=== PATIENT | male | born 1995 | race Caucasian/White ===

== ENCOUNTER 2017-07-21 01:10 | Emergency (ER) | payer SELFPAY ==
[2017-07-21 01:11] VITALS: BP 159/90; PULSE 100; RESP 14; TEMP 37.4; O2SAT 96; BMI 31.5
--- NOTE | 2017-07-21 01:28 | ED.DCSUM_ITS ---
- ER Visit Summary Date of Service: 07/21/17 Chief Complaint: Cough and congestion History of Present Illness: The patient is a 21 M he has had cold symptoms for the past 4 days. He states he is starting to feel better but left work early on July 19 and needs a work note for that day. He denies fever. He has productive cough with white sputum. Does have a history of asthma but is not felt as if he has been wheezing. Physical Examination: Vital signs are significant for blood pressure 159/90, otherwise normal. Head neck examination is unremarkable. Heart is regular rate and rhythm. Lung sounds are clear bilaterally. Abdomen soft nontender. Neuro exam is unremarkable. Test Results: [] Emergency Department Course and Treatment: Patient is given a work note. He may take [id number] medication and return to work. Treatment Plan: [] Disposition: Discharge Impression: Viral URI This note was generated with Narrative dictation software. It may contain incorrect words, spelling, and punctuation that were not noted in review of the chart prior to signing ED Disposition - Plan for ED Patient: Disposition: Home or Assisted Living Chief Complaint: Cold Sx Instructions: ED URI Viral
== END 2017-07-21 01:34 | disposition home or self-care (01) ==
PROVIDERS: Emergency Provider Emergency Medicine
DX: J06.9 Acute upper respiratory infection, unspecified (principal); J45.909 Unspecified asthma, uncomplicated; Z72.0 Tobacco use
CPT/HCPCS: 99282

== ENCOUNTER → 2020-03-17 10:18 | Outpatient (CLI) | payer BC, SELFPAY ==
--- NOTE | 2020-03-17 10:24 | RAD_ITS ---
STUDY: X-RAY - LUMBAR SPINE REASON FOR EXAM: Male, 24 years old. 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 COMPARISON: 2016 FINDINGS: There is straightening of the normal lumbar lordosis. There is no substantial scoliosis. There is a normal alignment of the vertebrae. Normal vertebral bodies and endplates. Normal disc space heights. The soft tissue structures are unremarkable. RAD/Lumbar Spine 2 or 3 Views IMPRESSION: Stable straightening of the lumbar lordotic curvature. No demonstrated fracture or suspicious osseous lesion Electronically Signed: Abdullahi Jara MD at 17:40 EDT , Service support ,
== END ==
PROVIDERS: Referring Provider Anesthesiology Pain Medicine; Visit Provider Anesthesiology Pain Medicine
DX: M54.9 Dorsalgia, unspecified (principal)
CPT/HCPCS: 72100

== ENCOUNTER 2020-03-26 06:55 | Outpatient (RCR) | payer BC, SELFPAY ==
--- NOTE | 2020-03-26 15:49 | HP.PTEVAL_ITS ---
Patient's Visit Information RACHAEL SCHROEDER is a 24 year old M referred to Physical Therapy by Dr. Mauricio Jennings MD with a diagnosis of Back pain. Date of Evaluation: 03/26/20 Physical Therapist: Remy Silva DPT - Visit Plan Frequency: 2x /Week Duration: 4 Weeks Plan: Start with lumbar extension progression, progressing to neutral spine core stability exercises. - Subjective Pt. is here today for his initial evaluation with diagnosis of back pain. Pt. is reports having pain for years. No mech of injury, but does report lifting alot in his youth with reported bad mechanics. 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 After standing for longer periods of time he is hunched over. He is having pain in her L posterior leg today. Pt. did report ~ 1 year ago when he was lifting alot and felt really weak in his legs. Pt. is hopeful to reduce his symptoms and allow to walk. He did have injections last week which have been helpful. - Pain lumbar spine Pain Intensity (Out of 10): 0 Pain Intensity Range: 0, 6 thoracic spine Pain Intensity (Out of 10): 0 Pain Intensity Range: 0, 6 - Objective POSTURE: Pt. has slight flexed posture. Pt. has slight FH posture. Pt. is able to correct with VCing. PALPATION: Pt. has minimal tenderness throughout lumbar, throacic and cervical spine. PT. has slight FH posture. NEURO: Pt. has normal sensation to light and sharp touch and normal DTR of B UE/LEs. ROM: LUMBAR SPINE: flexion- min loss increase NW, extension min/nil loss increase NW, SB nil loss NE, rotatin nil loss NE. CERVICAL SPINE: full ROM without increase ins symptoms. Stiffness noted in T-spine throughout. MMT: 5/5 strength throughout BUE and BLEs. Core strength- fair. GAIT: Pt. has normal gait pattern, slight increase in trunk rotation with gait, but no lateral hip translation. STAIRS: normal throughout. - Special Tests L/S Slump test left side: Positive L/S Slump test right side: Negative Lumbar Standing: Flexion - Mechanical Response: No effect Lumbar Standing: Flexion - Symptoms During Testing: Increases Lumbar Standing: Flexion - Symptoms After Testing: Worse Lumbar Standing: Extension - Mechanical Response: No effect Lumbar Standing: Extension - Symptoms During Testing: Decreases Lumbar Standing: Extension - Symptoms After Testing: No better Lumbar Standing: Right Side [place] - Symptoms During Testing: No effect Lumbar Standing: Right Side [place] - Symptoms After Testing: No effect Lumbar Standing: Left Side [place] - Mechanical Response: No effect Lumbar Standing: Left Side [place] - Symptoms During Testing: No effect Lumbar Standing: Left Side [place] - Symptoms After Testing: No effect Lumbar Lying: Flexion - Mechanical Response: No effect Lumbar Lying: Flexion - Symptoms During Testing: No effect Lumbar Lying: Flexion - Symptoms After Testing: No effect Lumbar Lying: Extension - Mechanical Response: No effect Lumbar Lying: Extension - Symptoms During Testing: Decreases Lumbar Lying: Extension - Symptoms After Testing: No better - Goals Goal 1:: LTG: Pt. to be I with HEP. Goal Time Frame: 4-6 Weeks Goal 2:: STG: pt. to be able to drive 2-3 hours without increase in symptoms. Goal Time Frame: 2-4 Weeks Goal 3:: LTG: Pt. to complete all work related activities without increase in symptoms. Goal Time Frame: 4-6 Weeks Goal 4:: STG: Pt. to have full lumbar ROM without increase in symptoms. Goal Time Frame: 2-4 Weeks Goal 5:: LTG: Pt. to have increased core strength by 1/2 grade without increase in symptoms. Goal Time Frame: 4-6 Weeks - Rehabilitation Potential Physical Therapy Diagnosis: Pt. has signs and symptoms consistent with low back pain with occassional radicular symptoms. He has a job here his sits for hours then is asked to lift heavier wts. Pt. would benefit from extension progressing and core stability exercises. Rehabilitation Potential: Excellent - Anticipated Interventions Patient/Client Instruction: Educate patient on: Condition, Plan of Care, Risk Factors, Benefits of Fitness Program For the Purpose of:: To improve self management, To prevent re-injury, To improve ability to perform tasks related to life management, To improve tolerance to ADL's Therapeutic Exercise to Include: Strength training, Power training, Balance training, Postural training, Flexibilty training, Passive ROM, Active ROM, Dynamic Lumbar Stabilization, Tato Exercises For the Purpose of:: To decrease pain, To decrease swelling/inflammation, To increase ROM, To improve nutrient delivery to tissue, To increase oxygenation perfusion, To improve muscle performance and motor function, To improve ability to perform ADL's, To improve health of tissue, To decrease soft tissue restriction, To increase flexibility/ROM IF ES: Yes Cryotherapy (ice pack, ice massage): Yes Ultrasound (thermal/non thermal): Yes For the Purpose of:: To decrease pain, To decrease swelling/inflammation, To increase ROM, To improve nutrient delivery to tissue, To increase oxygenation perfusion, To improve muscle performance and motor function Thank you for the opportunity to evaluate your patient. For Medicare and Medicare HMO plans, please review the plan of care and approve it. It will need to be FAXED BACK to us at [phone] for Medicare purposes. For Medicare only, by signing this I certify the plan of care. Please let me know if there are questions or concerns regarding this plan of care. Physician Signature: Date:
== END 2020-03-26 19:00 | disposition home or self-care (01) ==
LOC: PT 06:55
PROVIDERS: Referring Provider Anesthesiology Pain Medicine; Visit Provider Anesthesiology Pain Medicine
DX: M54.9 Dorsalgia, unspecified (principal)
CPT/HCPCS: 97161

== ENCOUNTER 2020-06-11 14:10 | Emergency (ER) | payer OTHER, BC, SELFPAY ==
[2020-06-11 14:11] VITALS: BP 139/91; PULSE 103; RESP 18; TEMP 36.7; O2SAT 96; BMI 33.3
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
== END 2020-06-11 15:17 | disposition home or self-care (01) ==
LOC: ED 15:13
PROVIDERS: Emergency Provider Emergency Medicine
DX: S06.0X9A Concussion with loss of consciousness of unspecified duration, initial encounter (principal); S39.012A Strain of muscle, fascia and tendon of lower back, initial encounter; S63.601A Unspecified sprain of right thumb, initial encounter; S80.212A Abrasion, left knee, initial encounter; S80.211A Abrasion, right knee, initial encounter; V68.5XXA Driver of heavy transport vehicle injured in noncollision transport accident in traffic accident, initial encounter; Y93.9 Activity, unspecified; Y92.9 Unspecified place or not applicable; Y99.0 Civilian activity done for income or pay; F17.200 Nicotine dependence, unspecified, uncomplicated
CPT/HCPCS: 70450; 72100; 73130; 99282

== ENCOUNTER 2023-05-01 19:18 | Emergency (ER) | payer BC, SELFPAY ==
[2023-05-01 19:19] VITALS: BP 160/88; PULSE 124; RESP 17; TEMP 36.4; O2SAT 96; BMI 36.5
--- NOTE | 2023-05-01 19:30 | RAD_ITS ---
INDICATION: COUGH EXAMINATION/TECHNIQUE: X-RAY - XR Chest 1 View COMPARISON: FINDINGS: LINES/DEVICES: None. LUNGS: No consolidation, edema or effusion. No pneumothorax. MEDIASTINUM AND CARDIOVASCULAR STRUCTURES: Cardiac silhouette not enlarged. Central airways and mediastinal contour are unremarkable. BONES AND SOFT TISSUES: Unremarkable. RAD/Chest 1 View (Portable) IMPRESSION: No radiographic evidence of acute cardiopulmonary disease. Electronically Signed: Cresencio Elizabeth DO at 20:34 EST ,
--- NOTE | 2023-05-01 20:22 | EDS_ITS ---
HPI HPI - URI History of Present Illness Chief Complaint: Cough Informant: patient Narrative Narrative: With cough wheeze and fevers and chills. Patient states about 4 days ago he started coughing. He has been hot and cold and having intermittent sweats. No chest pain. He does cough up some phlegm. He also has wheezing. He has a history of asthma as a child but he has not used inhalers for a long time. He is a smoker and was counseled to quit. He has never had a DVT or PE. No family history DVT or PE. 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 No leg swelling. ROS ROS ED ROS Narrative A complete review of systems was performed and is negative except as documented in the history of present illness. Some specific details below. Constitutional: No check of his fever but he has had hot cold chills and sweats intermittently. EYE: No discharge, visual complaints, or pain. ENT: No difficulty swallowing. No swelling. No pain. No reflux symptoms. Sore throat. Just mild nasal congestion. No earache. CV: Pain or palpitations. No syncope or near syncope. Respiratory: See history of present illness., Mild sputum, wheeze. GI: No abdominal pain. No nausea vomiting diarrhea. No blood in stool. : No frequency dysuria or hematuria. Musculoskeletal: No recent trauma. No pains. No swelling. Skin: No rash. Nondiaphoretic. Neuro: No weakness or numbness. Endocrine: No polyuria or polydipsia. PFSH PFSH Home Medications albuterol sulfate 90 mcg/actuation aerosol inhaler (Ventolin HFA) 2 puff inhalation Q4H PRN PRN Wheezing ##1 05/01/23 [Rx Last Taken Unknown] azithromycin 250 mg tablet 250 mg PO DAILY #4 TABLETS 05/01/23 [Rx Last Taken Unknown] prednisone 20 mg tablet 60 mg (3 x 20 mg) PO DAILY 4 days #12 TABLETS 05/01/23 [Rx Last Taken Unknown] Allergy/AdvReac Type Severity Reaction Status Date / Time No Known Allergies Allergy Verified 06/11/20 14:10 Social History Smoking Status: Current every day smoker EXAM Physical Exam Narrative Exam Narrative: CONSTITUTIONAL: Patient is nontoxic in appearance. The patient looks comfortable. Work of breathing looks normal. HEENT: No notable trauma. Mucous membranes moist. No sinus tenderness. No valerie cation of pain with swallowing. EYES: No conjunctival injection. No proptosis. NECK:No JVD. No stridor. CARDIOVASCULAR: Regular rate. Only sounds like his rate is about mid 90s. Regular rhythm. No notable murmur. No JVD. RESPIRATORY: No respiratory distress. Breathing is unlabored. Patient does have expiratory wheezing. He has cough. No chest wall tenderness. No pain with a deep breath. GASTROINTESTINAL: Not distended. Bowel sounds are normal. No tenderness. No guarding. No rebound. No palpable mass. No bruit is heard. GENITOURINARY: No tenderness over the bladder. No CVA tenderness. MUSCULOSKELETAL: Atraumatic. No peripheral edema. No cord. No tenderness along the deep venous system. No asymmetry. No distended veins. He has an abrasion that is healing on his right lateral calf but there is no sign of infection or swelling or irritation at all. NEUROLOGICAL: Patient is alert and appropriate. No focal deficit noted. SKIN: No noted rashes. No diaphoresis. PSYCHIATRIC: Patient is calm. Mood is appropriate. Const Vital Signs: 05/01/23 19:19 05/01/23 20:51 Temperature 97.5 F L Temperature Source Temporal Pulse Rate 124 H 100 Respiratory Rate 17 20 H Respiratory Pattern Normal Blood Pressure 160/88 H Blood Pressure Mean 112 Pulse Ox 96 Oxygen Delivery Method Room Air MDM [facility] MDM Narrative Medical decision making narrative: Patient got breathing treatment here. He is actually feeling better. He is moving more air and is actually wheezing a little bit more because of that. We will get him another breathing treatment. I do not think this patient needs to be evaluated for pulmonary embolus. He has cough mild sputum wheeze chills without chest pain. We will get him on prednisone, albuterol inhaler and antibiotics. After his breathing treatments he seemed almost have rhonchus changes down at the right base. My independent interpretation of his chest x-ray showed a question of a little bit increase streaking at the right base. It was read as normal though. But in light of the fact that he has a few rhonchi there and sputum production and history of fever I will treat him with antibiotics. He states he even feels a rattling or gurgling feeling in there. Radiography Diagnostic Testing: Clinical Impression(s) from Imaging Studies Chest X-Ray 05/01/23 19:30 IMPRESSION: No radiographic evidence of acute cardiopulmonary disease. Electronically Signed: Cresencio Elizabeth DO at 20:34 EST Reading Location ID and State: [facility] / [place] Tel [phone], Service support , Discharge Plan Triage Chief Complaint: Cough ED Provider: Silvino Bhatt Dx/Rx/DC Orders Clinical Impression: History of asthma, Community acquired pneumonia, Acute bronchospasm Instructions: ED Bronchitis with Wheezing (Adult), ED Pneumonia (Adult) Prescriptions: New azithromycin [azithromycin] 250 mg tablet 250 mg PO DAILY Qty: 4 0RF prednisone 20 mg tablet 60 mg PO DAILY 4 Days Qty: 12 0RF albuterol sulfate [Ventolin HFA] 90 mcg/actuation HFA aerosol inhaler 2 puff inhalation Q4H PRN PRN (Reason: Wheezing) Qty: 1 0RF Primary Care Provider: Care Physician,No Primary Referrals: Evelyn Mccray MD [Med Staff - Composition Board Press Operator] - 3-5 Days Care Physician,No Primary [Primary Care Provider] - Disposition Disposition: Home, Self Care
[2023-05-01] MEDS: predniSONE 20 MG Tablet 60 MG PO (20:35)
[2023-05-01 20:51] VITALS: PULSE 100; RESP 20
[2023-05-01] MEDS: Ipratropium/Albuterol Sulfate 3 ML AMPUL.NEB INHALATION (20:51)
[2023-05-01] MEDS: Albuterol 2.5 MG/3 ML VIAL.NEB. INHALATION (21:09)
[2023-05-01] MEDS: Azithromycin 250 MG Tablet 500 MG PO (21:33)
[2023-05-01] MEDS: Albuterol Sulfate 8 gm Inhaler (60 puffs) 2 PUFF INHALATION (21:49)
--- NOTE | 2023-05-01 22:36 | CPS ---
[2109] x1 Albuterol given to pt. in ER. Pre-HR=97, RR=20 with slightly diminished breath sounds with scattered wheezes. Post-SI=332, RR=20 with clearer breath sounds. Scattered wheezes still present in pt.
== END 2023-05-01 21:49 | disposition home or self-care (01) ==
PROVIDERS: Emergency Provider Emergency Medicine; Referring Provider Emergency Medicine; Visit Provider Emergency Medicine
DX: J18.9 Pneumonia, unspecified organism (principal); F17.200 Nicotine dependence, unspecified, uncomplicated; J98.01 Acute bronchospasm
CPT/HCPCS: 71045; 87428; 94640; 99283

== ENCOUNTER 2023-05-25 15:43 | Emergency (ER) | payer BC, SELFPAY ==
[2023-05-25 15:45] VITALS: BP 162/92; PULSE 76; RESP 18; TEMP 36.9; O2SAT 100; BMI 36.2
--- NOTE | 2023-05-25 18:53 | EX.ED.VIS.UR ---
HPI HPI - URI History of Present Illness Chief Complaint: Sore Throat Narrative Narrative: Male presenting with sore throat. He states been ongoing for several days now. Patient recently was diagnosed with pneumonia. He was on a Z-Adam and sent home with prednisone as he has a history of asthma. He is also using his inhaler. Patient states he only has a sore throat. He is only been using DayQuil and has not tried Tylenol and ibuprofen. No trouble swallowing or breathing. No fevers or chills. ROS ROS ED Constitutional Constitutional ED: Denies chills, fever(s) or sweats Eyes Eyes: Denies blurry vision or change in vision ENT ENT ED: Reports sore throat; Denies ear pain Cardiovascular Cardiovascular: Denies chest pain, palpitations or racing heartbeat Respiratory/Chest Respiratory/Chest: Denies cough, dyspnea or sputum Gastrointestinal Gastrointestinal: Denies abdominal pain, constipation, diarrhea, nausea or vomiting Genitourinary Genitourinary ED: Denies dysuria, hematuria or urinary frequency Musculoskeletal Musculoskeletal: Denies arthralgias, myalgias or neck pain Integumentary Denies abscess, Abrasions or rash Neurologic Neurologic: Denies headache(s), paresthesias or weakness Psychiatric Psychiatric: Denies anxiety, depression, suicidal ideation or suicidal thoughts Endocrine Endocrinology: Denies polydipsia or polyuria [facility] Medical History Asthma Home Medications albuterol sulfate 90 mcg/actuation aerosol inhaler (Ventolin HFA) 2 puff inhalation Q4H PRN PRN Wheezing ##1 05/01/23 [Rx Last Taken Unknown] azithromycin 250 mg tablet 250 mg PO DAILY #4 TABLETS 05/01/23 [Rx Last Taken Unknown] prednisone 20 mg tablet 60 mg (3 x 20 mg) PO DAILY 4 days #12 TABLETS 05/01/23 [Rx Last Taken Unknown] benzocaine 15 mg-menthol 2.6 mg lozenges (Cepacol Sore Throat (benzocaine-menthol)) 1 channing mucous membrane Q4H PRN sore throat #16 ea 05/25/23 [Rx Last Taken Unknown] Allergy/AdvReac Type Severity Reaction Status Date / Time No Known Allergies Allergy Verified 05/25/23 15:45 Social History Smoking Status: Current every day smoker tobacco type: cigarettes EXAM Physical Exam Const Vital Signs: 05/25/23 15:45 Temperature 98.5 F Temperature Source Temporal Pulse Rate 76 Respiratory Rate 18 Blood Pressure 162/92 H Blood Pressure Mean 115 Pulse Ox 100 Oxygen Delivery Method Room Air Positive well nourished General Appearance ED: NAD HEENT Reports moist mucous membranes and dry mucous membranes Face and Sinus: normal facial exam Nose: external nose normal and nares normal Mouth ED: Yes oral and palatal mucosa normal, Yes lips normal, Yes tongue normal, Yes salivary gland normal and Yes dry mucous membranes Mouth: oral and palatal mucosa normal, lips normal, tongue normal, salivary gland normal and dry mucous membranes Throat: posterior oropharynx normal, tonsils normal and uvula midline Eyes PERRL Neck no lymphadenopathy, supple and no meningeal signs Resp normal respiratory effort and clear to auscultation bilaterally Cardio Rate: regular rate Rhythm: regular rhythm Extremity normal to inspection Neuro oriented x3 Sensorium / Orientation: alert MDM MDM MDM Narrative Medical decision making narrative: Well-appearing 27-year-old male with sore throat. Been ongoing for 5 days. Patient has really not tried anything such as Tylenol and ibuprofen. He states he taken DayQuil a couple of times. His HEENT exam is completely normal. He does have a hoarse voice. Lungs clear to auscultation bilaterally. Vital signs are stable and he is afebrile. He is under percent on room air. No stridor is appreciated. Patient tested for COVID, flu, RSV and these are all negative. Patient will be given a dose of Decadron p.o. here. He is also given a course of Cepacol lozenges. I recommended Tylenol and ibuprofen for pain. Impression: 1. Pharyngitis Lab Data Attestation: I reviewed the patient's lab results. Discharge Plan Triage Chief Complaint: Sore Throat ED Provider: Kwaku Zhao Dx/Rx/DC Orders Instructions: ED Pharyngitis, Viral Prescriptions: New Cepacol Sore Throat (toribio-men) 15-2.6 mg lozenge 1 channing mucous membrane Q4H PRN (Reason: sore throat) Qty: 16 0RF No Action azithromycin [azithromycin] 250 mg tablet 250 mg PO DAILY Qty: 4 0RF prednisone 20 mg tablet 60 mg PO DAILY 4 Days Qty: 12 0RF albuterol sulfate [Ventolin HFA] 90 mcg/actuation HFA aerosol inhaler 2 puff inhalation Q4H PRN PRN (Reason: Wheezing) Qty: 1 0RF Primary Care Provider: Care Physician,No Primary Referrals: Care Physician,No Primary [Primary Care Provider] - Disposition Disposition: Home, Self Care
[2023-05-25] MEDS: BENZOCAINE/MENTHOL 1 LOZENGE MUCOUS MEM (18:59)
[2023-05-25] MEDS: dexAMETHasone 10 MG/ML Vial PO.IVFORM (18:59)
[2023-05-25 19:01] VITALS: RESP 14
== END 2023-05-25 19:02 | disposition home or self-care (01) ==
PROVIDERS: Emergency Provider Student in an Organized Health Care Education/Training Program; Visit Provider Student in an Organized Health Care Education/Training Program
DX: J02.9 Acute pharyngitis, unspecified (principal); F17.210 Nicotine dependence, cigarettes, uncomplicated; Z11.52 Encounter for screening for COVID-19
CPT/HCPCS: 87631; 87651; 99283

== ENCOUNTER → 2023-07-25 | Outpatient (CLI) | payer BC, SELFPAY ==
--- NOTE | 2023-07-25 18:16 | RAD_ITS ---
INDICATION: PAIN EXAMINATION/TECHNIQUE: X-RAY - XR Spine Lumbar 2 or 3 Views COMPARISON: Prior study dated: FINDINGS: VERTEBRAE: Preserved vertebral body height. No fracture. No spondylolisthesis. Preservation of the normal lumbar lordosis. No significant facet arthropathy. DISCS: Disc spaces are maintained. INCLUDED ABDOMEN: Included bowel gas pattern is non-obstructive. RAD/Lumbar Spine 2 or 3 Views IMPRESSION: No evidence of lumbar spinal fracture or spondylolisthesis. Electronically Signed: Ray Buenrostro MD at 10:46 EST ,
== END | disposition home or self-care (01) ==
LOC: RAD 18:15
PROVIDERS: Visit Provider Anesthesiology
DX: M54.16 Radiculopathy, lumbar region (principal)
CPT/HCPCS: 72100

== ENCOUNTER 2023-09-15 07:30 | Outpatient (RCR) | payer BC, SELFPAY ==
--- NOTE | 2023-08-03 18:46 | HP.PTEVAL_ITS ---
Patient's Visit Information Visit Information Visit Information: RACHAEL SCHROEDER is a 27 year old M referred to Physical Therapy by Dr. Kenn Atkins MD with a diagnosis of Sciatica. Date of Evaluation: 08/03/23 Physical Therapist: Donavon Durand, DPT, OCS, CSCS Visit Plan Frequency: 3x /Week Duration: 4-6 Weeks Plan: 3x/week for 4 weeks for 1. PA ext mobs LS and low back nayla extension 2. DLS and core strength 3. HS rollout adn stretching TENS if needed, progress to I posture, strengh, stretch program Given HS stretch, PPU and back movement , posture with otwel roll today, Subjective Subjective: Got sharp pain in B LB last week and spasms. Sometimes quads. Had this one time before a couple months ago and it went away. Not sure why it returned last week. 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 Sitting and standing up worse, walking better. Sleep is not a problem Takes a minute to get comfortable. Mornigs are OK and the best. 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 Basic aDLs: getting done. Hobbies: mechanics work has slowed down due to pain. regular exercises. Family with parents. Pain LB: Pain Intensity (Out of 10): 3 Pain Intensity Range: 0 and 8 Comment: Hurts sitting and standing up. Objective Objective: Walks and trasnfers I, some grunting with bed trasnsfers. flat lordotic posture. L/s AROM ext painful centrally and mod limtied, flexion and SB not bad. LE AROM tight in HS but WFL. reflexes 2/3 patella and achilles Sensation LE WNL to gross light touch. strength LE 5/5, core 4/5 Repeated ext PPU improves tightness. Balance/Special Test Scores Oswestry Low Back Score: 13 Goals Goal 1:: Full lumbar extension without pain Goal Time Frame: 4-6 Weeks Goal 2:: Pain in LB 0-1/10 at allt imes and 80% better Goal Time Frame: 4-6 Weeks Goal 3:: I management of condition with posture and exercises Goal Time Frame: 4-6 Weeks Goal 4:: oswestry score 5 or better Goal Time Frame: 4-6 Weeks Rehabilitation Potential Physical Therapy Diagnosis: Limited motion and pain causing disocmfortable Life Rehabilitation Potential: Good Anticipated Interventions Patient/Client Instruction: Educate patient on: Condition For the Purpose of:: To decrease pain, To increase ROM, To improve nutrient delivery to tissue, To improve muscle performance and motor function, To increase tolerance to activity/condition/position, To improve ability of physical actions for home/community/work/leisure and To improve gait and locomotor functions Therapeutic Exercise to Include: Strength training, Flexibilty training, Passive ROM, Active ROM, Dynamic Lumbar Stabilization and Nayla Exercises For the Purpose of:: To decrease pain, To increase ROM, To improve nutrient delivery to tissue, To improve muscle performance and motor function, To improve ability to perform ADL's, To increase tolerance to activity/condition/position, To improve ability of physical actions for home/community/work/leisure and To improve gait and locomotor functions Manual Therapy Techniques to Include: Mobilization, Passive ROM and Soft tissue mobilization For the Purpose of:: To increase ROM and To improve nutrient delivery to tissue TENS: Yes Thermo therapy (hot pack): Yes For the Purpose of:: To decrease pain and To increase ROM Text: Thank you for the opportunity to evaluate your patient. For Medicare and Medicare HMO plans, please review the plan of care and approve it. It will need to be FAXED BACK to us at [phone] for Medicare purposes. For Medicare only, by signing this I certify the plan of care. Please let me know if there are questions or concerns regarding this plan of care. Physician Signature: Date:
--- NOTE | 2023-09-15 08:23 | HP.PTDCSUM_ITS ---
Discharge Summary D/C summary: It has been my pleasure to treat RACHAEL SCHROEDER referred by Dr. Kenn Atkins MD, with the diagnosis of Sciatica for a total of 12 visit(s). Discharge Date: 09/15/23 Please see the following information for a summary of their discharge status. Subjective Subjective: Pt. reports overall being 100% better. Pt reports no pain or N/T. 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 Pain LB: Pain Intensity (Out of 10): 0 Overall Improvement % Improvement: 100 Objective Objective/Function: ROM: LUMBAR SPINE: flexion min loss NE (tightness noted), ext nil loss NE, SB nil loss NE, rotation nil loss NE bilat. MMT: symmetrical between Bilateral LEs, good core strength. normal B patellar reflexes Pt. able to maintain good posture throughout assessment. He is I with HEP for core strengthening and extension progression. I talked with him about continued extension progression for prophalaxis. Goals Goal 1:: Full lumbar extension without pain Goal Progress: Goal Met Goal 2:: Pain in LB 0-1/10 at allt imes and 80% better Goal Progress: Goal Met Goal 3:: I management of condition with posture and exercises Goal Progress: Goal Met Goal 4:: oswestry score 5 or better Goal Progress: Goal Met Plan Plan: DC from PT at this point in time. D/C Information Discharge Comments: Pt. was treated in PT for his Sciatica. Pt. was progressed w ith an extension progression and eventually core stability. He has met all of his goal and will be DC from PT at this point in time. d/c sentence: If there are questions or concerns regarding this patient's physical therapy, please feel free to call me at [phone]. Thank you for the referral of this patient. Sincerely, Remy Nunez Sipos, DPT Balance/Gait/Functional tests Balance/Special Test Scores Oswestry Low Back Score: 0 Improvement % Improvement: 100
== END 2023-09-15 08:37 | disposition home or self-care (01) ==
LOC: PT 07:30
PROVIDERS: Referring Provider Anesthesiology; Visit Provider Anesthesiology
DX: M54.16 Radiculopathy, lumbar region (principal)
CPT/HCPCS: 97110; 97161; 97530

== ENCOUNTER → 2023-10-03 | Outpatient (CLI) | payer BC, SELFPAY ==
[2023-10-03 12:55] LABS: Absolute Lymphocyte Count 2.86 X10^3/uL (0.83-4.51); Absolute Neutrophil Count 3.6 X10^3/uL (2.0-7.7); Basophil# 0.09 X10^3/uL; Basophil% 1.2 % (0-1); Eosinophil# 0.15 X10^3/uL; Hemoglobin 15.1 g/dL (13.0-16.5); Lymphocyte # 2.86 X10^3/ul (0.83-4.51); Lymphocyte % 37.8 % (19-41); Mean Corp Hgb Conc 32.1 g/dL (32-36); Mean Corpuscular Hgb 29.9 pg (27.0-32.0); Mean Corpuscular Volume 93.1 fL (80-94); Mean Platelet Vol. 9.7 fl (6.2-12.0); Monocyte# 0.81 X10^3/uL; Monocyte% 10.7 % (0-10); NRBC Flagged by Analyzer 0 % (0-5); Neutrophil # 3.62 X10^3/uL (2.7-7.7); Neutrophil % 47.9 % (47-70); Platelet Count 377 K/mm3 (150-450); RBC Distribution Width CV 13.6 % (11.6-14.6); RBC Distribution Width SD 46.6 fl (35.1-43.9); Red Blood Count 5.05 M/mm3 (4.6-6.2); White Blood Count 7.6 K/mm3 (4.4-11.0)
[2023-10-03 13:22] LABS: AST(SGOT) 24 U/L (15-37); Alanine Aminotransfer ALT/SGPT 70 U/L (16-61); Albumin, Serum 3.9 g/dL (3.2-5.0); Alkaline Phosphatase 83 U/L (45-117); Anion Gap 5 (5-15); BUN 13 mg/dL (7-18); BUN/Creat Ratio 12.6 RATIO (10-20); Calcium,Total 9.3 mg/dL (8.5-10.1); Chloride 105 mmol/L (98-107); Cholesterol 191 mg/dL (200); Creatinine, Serum 1.03 mg/dL (0.70-1.30); EST Glomerular Filtration Rate 93 mL/min (>60); Est Glom Filt Rate - Afr Amer 112 mL/min (>60); Globulin 3.9 g/dL (2.2-4.2); Glucose 99 mg/dL (74-106); High Density Lipoprotein 40 mg/dL; Potassium 4.5 mmol/L (3.5-5.1); Protein, Total 7.8 g/dL (6.4-8.2); Sodium Level 137 mmol/L (136-145); Triglycerides 255 mg/dL; Very Low Density Lipoprotein 51 mg/dL (5-40)
== END | disposition home or self-care (01) ==
LOC: BFHLAB 09:23
PROVIDERS: PCP Nurse Practitioner Family; Referring Provider Nurse Practitioner Family; Visit Provider Nurse Practitioner Family
DX: Z00.01 Encounter for general adult medical examination with abnormal findings (principal); R05.3 Chronic cough
CPT/HCPCS: 36415; 80053; 80061; 85025

== ENCOUNTER 2024-02-06 17:06 | Emergency (ER) | payer BC, SELFPAY ==
[2024-02-06 17:06] VITALS: BP 145/88; PULSE 98; RESP 14; TEMP 36.3; O2SAT 96; BMI 38.4
== END 2024-02-06 19:41 | disposition left against medical advice (07) ==
LOC: ED 19:49
PROVIDERS: PCP Nurse Practitioner Family
DX: R05.9 Cough, unspecified (principal); Z53.21 Procedure and treatment not carried out due to patient leaving prior to being seen by health care provider

== ENCOUNTER 2024-06-22 08:56 | Emergency (ER) | payer BC, SELFPAY ==
[2024-06-22 08:57] VITALS: BP 138/88; PULSE 106; RESP 20; TEMP 35.6; O2SAT 98
[2024-06-22 08:58] VITALS: BMI 38.5
--- NOTE | 2024-06-22 09:05 | ED.RN ---
PT WAS OUT DRINKING AND EATING WITH FRIENDS LAST NIGHT, LACKING SLEEP D/T WORK LATELY. PT C/O REDNESSS TO HIS FACE BUT DENIES ANY PAIN OR ITCHING. PT STATES HE HAD 3 MIXED DRINKS. DENIES ANY DAILY MEDS OR NEW MEDS. PT VOMITED ONCE WHEN HE GOT HOME.
[2024-06-22 09:08] VITALS: TEMP 37.4
--- NOTE | 2024-06-22 09:22 | EX.ED.DYSGE1 ---
HPI History of Present Illness Chief Complaint: Rash Informant: patient Narrative Narrative: 28-year-old male presenting to the emergency room for the evaluation of facial rash and sore throat. Patient states that this work week was extremely long and fatiguing for him. He states he is only gotten about 15 hours of sleep. Last night he went out had a few mixed drinks but only was out for about an hour went home. He states that he had developed a sore throat and believe he had a fever and it broke during the night. He feels sweaty still. He states he had an episode of very forceful vomiting followed by retching. When he looked in the mirror this morning he noticed a rash around his eyes and forehead. He states that his throat which was only hurting on the right is now hurting on both sides. He notes some myalgias. He denies any further nausea vomiting or diarrhea. No significant cough. [facility] Medical History Asthma Home Medications ?Medication ?Instructions ?Recorded ?Last Taken ?Type albuterol sulfate 90 mcg/actuation 2 puff inhalation Q4H PRN PRN 05/01/23 Unknown Rx aerosol inhaler (Ventolin HFA) Wheezing ##1 amoxicillin 875 mg-potassium 1 tab PO BID #10 tabs 06/22/24 Unknown Rx clavulanate 125 mg tablet Allergy/AdvReac Type Severity Reaction Status Date / Time No Known Allergies Allergy Verified 05/25/23 15:45 Social History Smoking Status: Current every day smoker tobacco type: cigarettes ROS ROS ED Constitutional Constitutional ED: Reports fever(s), subjective and sweats; Denies chills Eyes Eyes: Denies change in vision or diplopia ENT ENT ED: Reports sore throat; Denies ear pain or rhinorrhea Cardiovascular Cardiovascular: Denies chest pain, orthopnea, palpitations or racing heartbeat Respiratory/Chest Respiratory/Chest: Denies cough, dyspnea or orthopnea Gastrointestinal Gastrointestinal: Reports nausea and vomiting; Denies abdominal pain or diarrhea Genitourinary Genitourinary ED: Denies dysuria, hematuria or urinary frequency Musculoskeletal Musculoskeletal: Denies arthralgias or myalgias Integumentary Reports rash; Denies abscess Neurologic Neurologic: Denies headache(s) or weakness Psychiatric Psychiatric: Denies anxiety, depression, suicidal ideation or suicidal thoughts Endocrine Endocrinology: Denies polydipsia, polyphagia or polyuria Allergic/Immunologic Allergic/Immunologic ED: Denies mouth swelling, tongue swelling or urticaria EXAM Physical Exam Const Vital Signs: 06/22/24 08:57 06/22/24 09:08 Temperature 96.1 F L 99.4 F H Temperature Source Temporal Oral Pulse Rate 106 H Respiratory Rate 20 H Blood Pressure 138/88 H Blood Pressure Mean 104 Pulse Ox 98 Oxygen Delivery Method Room Air Positive well nourished and well developed General Appearance ED: well developed and NAD HEENT Reports normocephalic, head/scalp atraumatic and moist mucous membranes HEENT Narrative: There is bilateral tonsillar erythema and exudate. No palatal petechiae. No retropharyngeal or peritonsillar abscesses are noted. Soft palate appears normal Eyes PERRL and EOMs intact bilaterally Neck supple and no JVD Neck Narrative: Anterior lymphadenopathy Resp normal respiratory effort and clear to auscultation bilaterally Cardio regular rate, regular rhythm and no murmurs GI normal to inspection, nondistended, normoactive bowel sounds and non-tender Palpation: soft Back/Spine no CVA tenderness and normal ROM Extremity normal to inspection General Extremety ED: Negative for edema General Extremity: Negative for edema Neuro oriented x3 and CN's II-XII intact bilaterally Sensorium / Orientation: alert Motor Exam: strength 5/5 throughout Psych mental status grossly normal Mood & Affect: Negative for depressed or tearful Skin no wounds Skin Narrative: There is a petechial-like rash around the forehead and periorbital region bilaterally. No evidence of hives. It is flat nonblanching MDM MDM MDM Narrative Medical decision making narrative: Differential diagnosis includes urticaria viral exanthem erythematous no some erythema multiform a petechiae exudative pharyngitis (bacterial and viral) I believe that the facial rash is petechiae most likely from retching and vomiting. He has a exudative pharyngitis. Given the reported history of fever lack of cough lymphadenopathy in the anterior chain and the appearance of the throat this is most likely bacterial. Him and a cover him with Augmentin. We talked about if he is not improving he should be tested for mono. We talked about foregoing formal strep throat culture which she is comfortable with. Patient to reduce fever and orally hydrate return if worsening or concerns History & Record Review Discussion w/independent historian: Patient Discharge Plan Triage Chief Complaint: Rash ED Provider: Oli Paez Dx/Rx/DC Orders Clinical Impression: Exudative pharyngitis, Petechial rash Instructions: ED Pharyngitis, Report Pending, ED Petechiae Prescriptions: New amoxicillin-pot clavulanate 875-125 mg tablet 1 tab PO BID Qty: 10 0RF No Action albuterol sulfate [Ventolin HFA] 90 mcg/actuation HFA aerosol inhaler 2 puff inhalation Q4H PRN PRN (Reason: Wheezing) Qty: 1 0RF Primary Care Provider: Chelita Serna Referrals: Chelita Serna, [employer] [Primary Care Provider] - As Needed Print Language: Indonesian Disposition Disposition: Home, Self Care
== END 2024-06-22 09:24 | disposition home or self-care (01) ==
LOC: ED 09:22
PROVIDERS: Emergency Provider Emergency Medicine; PCP Nurse Practitioner Family; Visit Provider Emergency Medicine
DX: J02.9 Acute pharyngitis, unspecified (principal); R21 Rash and other nonspecific skin eruption; J45.909 Unspecified asthma, uncomplicated; R11.10 Vomiting, unspecified
CPT/HCPCS: 99282